=== PATIENT | male | born 1995 | race Caucasian/White ===

== ENCOUNTER 2018-08-09 22:41 | Emergency (ER) | payer SELFPAY ==
[~2018-08-09] VITALS: Ht 170.2 cm; Wt 84.1 kg
[~2018-08-09 22:41] MED LIST: BACTRIM DS 8001 TAB PO
[2018-08-09 22:43] VITALS: TEMP 98.7
[2018-08-10] MEDS ORDERED: CEPHALEXIN500 M1 PO (00:48)
[2018-08-10 01:18] VITALS: BP 156/90; PULSE 98
== END 2018-08-10 01:16 | disposition home or self-care (01) ==
LOC: COL.ER 22:41
DX: S51.812A Laceration without foreign body of left forearm, initial encounter (principal); F12.90 Cannabis use, unspecified, uncomplicated; Z88.0 Allergy status to penicillin; Z23 Encounter for immunization; X78.1XXA Intentional self-harm by knife, initial encounter; Y92.009 Unspecified place in unspecified non-institutional (private) residence as the place of occurrence of the external cause

== ENCOUNTER 2018-08-23 13:51 | Emergency (ER) | payer SELFPAY ==
[~2018-08-23 13:51] MED LIST changes: +CEPHALEXIN500 M1 PO
[2018-08-23 14:00] VITALS: BP 133/62; PULSE 66; TEMP 98
== END 2018-08-23 14:09 | disposition home or self-care (01) ==
LOC: COL.ER 13:51
DX: S51.812D Laceration without foreign body of left forearm, subsequent encounter (principal); X58.XXXD Exposure to other specified factors, subsequent encounter